=== PATIENT | female | born 1965 | race African-American/Black ===

== ENCOUNTER 2017-07-28 17:01 | Emergency (ER) | payer MEDICAID ==
[2017-07-28 17:11] VITALS: RESP 18
[2017-07-28 17:24] LABS: COLOR YELLOW; LEUKOCYTE ESTERASE,URINE NEGATIVE (NEGATIVE); NITRITE,URINE NEGATIVE (NEGATIVE)
[2017-07-28 17:32] LABS: BACTERIA TRACE /hpf (NONE SEEN); MUCUS 3+ /lpf (NONE-1+); RBC,URINE OCCASIONAL /hpf (0-3); WBC,URINE NONE SEEN /hpf (0-3)
[2017-07-28] MEDS ORDERED: IBUPROFEN 600 MG TAB PO ONE (17:52)
[2017-07-28 18:17] LABS: % IMMATURE GRANULYOCYTES 0.2 % (0.0-1.1); ABSOLUTE IMMATURE GRANULOCYTES 0.01 10^3/uL (0.00-0.10); ADD DIFF? NO; ADD MORPH? NO; ADD SCAN? NO; ATYPICAL LYMPHOCYTE FLAG 10 (0-99); FRAGMENT RBC FLAG 0 (0-99); HEMATOCRIT 45.5 % (38.0-47.0); HEMOGLOBIN 15.8 g/dL (12.6-16.3); LEFT SHIFT FLG 0 (0-99); LIPEMIA HEMOLYSIS FLAG 90 (0-99); MEAN CELL HEMOGLOBIN 35.6 pg (27.9-34.1); MEAN CELL HEMOGLOBIN CONCENTR. 34.7 g/dL (32.4-36.7); MEAN CELL VOLUME 102.5 fL (81.5-99.8); MEAN PLATELET VOLUME 9.3 fL (8.7-11.7); PLATELET CLUMPS FLAG 0 (0-99); PLATELET COUNT 336 10^3/uL (150-400); RED BLOOD CELL COUNT 4.44 10^6/uL (4.18-5.33); RED CELL DISTRIBUTION WIDTH 12.7 % (11.5-15.2)
--- NOTE | 2017-07-28 18:22 | EDPHY ---
H & P Time Seen by Provider: 07/28/17 17:30 HPI/ROS: This patient reports onset of urinary frequency yesterday as well urgency reminiscent of her previous UTI. She explains that she finished 7 days of Cipro to 3 days before that and had recurrence of symptoms. However she also reports left lower quadrant pain and left flank pain. She states the left lower quadrant pain is moderate to severe. The pain worsens with movement. She took 8 200 mg ibuprofen and this afternoon for the pain with mild relief. She notes no other exacerbating factors. She also reports mild right flank pain. No other associated symptoms and no other exacerbating factors are noted. She walked here. ROS: No high fevers or chills. No other constitutional symptoms HEENT: No URI symptoms. Neuro: No headache. No numbness tingling weakness. Pulmonary: No cough shortness of breath Cardiovascular: No chest pain. No heart palpitations. No lightheadedness. GI: No bloating. Normal bowel movements. No nausea or vomiting. She is tolerating p.o. intake. : She reports vaginal discharge consistent with prior yeast infections that she attributes to the Cipro course. Complete ROS is otherwise negative. Past Medical/Surgical History: Frequent UTIs. Insomnia. She is out of her Seroquel that she takes for insomnia and requests more. Alcohol abuse Social History: She drinks half pt of alcohol a night. She reports is down from 1 pt earlier in the year. She states that when she has Seroquel she stops drinking is able to sleep. Smoking Status: Current every day smoker Physical Exam: Vital signs are normal with exception of borderline hypertension 142/97. General Appearance: Alert, no distress. Eyes: Pupils equal and round no pallor or injection. ENT, Mouth: Mucous membranes moist. Respiratory: There are no retractions, lungs are clear to auscultation. Cardiovascular: Regular rate and rhythm. Gastrointestinal: Normoactive, soft, mild left lower quadrant tenderness with no guarding or rebound. No suprapubic tenderness. Back: Mild left flank tenderness. Otherwise normal no midline tenderness. Neurological: GCS 15 with no focal deficits appreciated. Skin: Warm and dry, no rashes. Musculoskeletal: Neck is supple nontender. Extremities are symmetrical, full range of motion. Psychiatric: Mood and affect are normal DIFFERENTIAL DIAGNOSIS: After history and physical exam differential diagnosis was considered for cystitis, pyelonephritis, diverticulitis, constipation, ureteral stone Constitutional: Initial Vital Signs Temperature (C) 36.5 C 07/28/17 17:07 Heart Rate 90 07/28/17 17:07 Respiratory Rate 18 07/28/17 17:07 Blood Pressure 142/97 H 07/28/17 17:07 O2 Sat (%) 97 07/28/17 17:07 O2 Delivery Mode Room Air Allergies/Adverse Reactions: No Known Allergies Allergy (Verified 07/28/17 17:07) Home Medications: Medication Instructions Recorded Citalopram Hydrobromide [Celexa] 40 mg PO DAILY #30 tablet 02/05/15 Cephalexin [Keflex (*)] 500 mg PO TID #21 cap 07/28/17 QUEtiapine FUMARATE [Seroquel 25 25 mg PO HS #30 tab 07/28/17 mg (*)] MDM/Departure - MDM Medications Given: Discontinued Medications Ibuprofen (Motrin) 600 mg PO EDNOW ONE Stop: 07/28/17 17:53 Last Admin: 07/28/17 17:57 Dose: Not Given ED Course/Re-evaluation: IV normal saline bolus A review of her labs reveals no significant abnormalities. She has no leukocytosis. Not think she has diverticulitis given normal CBC. Given symptoms are classic for previous UTIs and recent UTI with some bacteria current urinalysis, will treat her with Keflex for potential early UTI. I counseled regarding this. She understands the need to take probiotic while on Keflex. She will return for any significant worsening in use Tylenol or ibuprofen for symptoms. I encouraged her to decrease her drinking and to avoid excessive ibuprofen. Will provide a refill for Seroquel for her insomnia. - Depart Disposition: Home, Routine, Self-Care Clinical Impression: Dysuria, Flank pain Insomnia Qualifiers: Insomnia type: primary Qualified Code(s): F51.01 - Primary insomnia Prescriptions: Cephalexin [Keflex (*)] 500 mg PO TID #21 cap QUEtiapine FUMARATE [Seroquel 25 mg (*)] 25 mg PO HS #30 tab Referrals: [facility],. [Primary Care Provider] - As per Instructions
[2017-07-28 18:26] LABS: ALANINE AMINOTRANSFERASE 28 IU/L (9-52); ALBUMIN 4.1 g/dL (3.5-5.0); ALKALINE PHOSPHATASE 47 IU/L (38-126); ANION GAP 12 mEq/L (8-16); ASPARTATE AMINOTRANSFERASE 18 IU/L (14-46); BILIRUBIN,TOTAL 0.5 mg/dL (0.1-1.4); CALCIUM 9.7 mg/dL (8.5-10.4); CARBON DIOXIDE 24 mEq/l (22-31); CHLORIDE 108 mEq/L (97-110); CREATININE 0.7 mg/dL (0.6-1.0); GLOMERULAR FILTRATION RATE > 60; GLUCOSE 105 mg/dL (70-100); POTASSIUM 3.6 mEq/L (3.5-5.2); SODIUM 144 mEq/L (134-144); TOTAL PROTEIN 7.4 g/dL (6.3-8.2)
[2017-07-28 18:52] VITALS: BP 138/95; PULSE 65; TEMP 98.6; O2SAT 98
== END 2017-07-28 18:50 | disposition home or self-care (01) ==
LOC: CED 17:01
DX: R30.0 Dysuria (principal); F51.01 Primary insomnia; F17.200 Nicotine dependence, unspecified, uncomplicated
CPT/HCPCS: 80053-PO; 81003-PO; 81015-PO; 83690-PO; 85025-PO

== ENCOUNTER 2017-12-14 20:05 | Emergency (ER) | payer MEDICAID ==
[2017-12-14] MEDS ORDERED: MAG HYDROX/AL HYDROX/SIMETH 30 ML UDCUP PO ONE (20:28)
[2017-12-14] MEDS ORDERED: HYOSCYAMINE SULFATE 0.125 MG TAB PO ONE ×2 (20:28→21:52)
--- NOTE | 2017-12-14 20:33 | EDPHY ---
H & P Stated Complaint: 2 days burning in upper stomach Time Seen by Provider: 12/14/17 20:13 HPI/ROS: This patient describes lower chest/epigastric pain currently 8/10 intensity. She describes the pain as feeling like a knot in that area when she swallows it feels like the not lower is down a bit prior to coming back to its original position. When she belches she has a burning sensation associated with the symptoms. She reports that the symptoms worse with walking or exertion. No worsening when lying supine. No other exacerbating factors are noted. She did try Zantac over the past 2 days since the onset of symptoms without improvement. The pain does not radiate to her back. She arrived by private vehicle for evaluation of her symptoms. ROS: No fevers chills or other constitutional complaints HEENT she has had coryza over the past 2 weeks with occasional sneezing but no other complaints Pulmonary: Mild smoker's cough unchanged. No shortness of breath. No hemoptysis. Cardiovascular: No heart palpitations lightheadedness or leg swelling. No calf pain. GI: No lower belly pain. She reports normal appetite and normal bowel movements -2 a day which is baseline for her. No nausea or vomiting. No dark tarry stools or bloody stools. : No urinary symptoms vaginal discharge or other complaints Integumentary: No skin rash Endocrine: No complaints Psychiatric: No complaints. No difficulty with sleep. Complete review of symptoms is otherwise negative. Source: Patient Exam Limitations: No limitations - Personal History LMP (Females 10-55): Hysterectomy - Medical/Surgical History PMH: Past surgical history of appendectomy and internal pelvic fixation after pelvic fracture Hx Asthma: Yes Hx Chronic Respiratory Disease: No Hx Diabetes: No Hx Cardiac Disease: No Hx Renal Disease: No Hx Cirrhosis: Yes Hx Alcoholism: Yes Hx HIV/AIDS: No Hx Splenectomy or Spleen Trauma: No Other PMH: medical possible IBS, anxiety. surgery appendectomy, pelvic repair, partial hysterectomy, depression,RT RIB FX - Social History Smoking Status: Current every day smoker Alcohol Use: Occasionally Drug Use: Marijuana Additional Social History: She denies any IV drug use cocaine or other drug use besides marijuana. 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 Eyes: Pupils equal and round no pallor or injection. ENT, Mouth: Mucous membranes moist. Respiratory: There are no retractions, lungs are clear to auscultation. No chest wall or sternal tenderness on exam Cardiovascular: Regular rate and rhythm no murmur gallop or rub. No leg edema or tenderness Gastrointestinal: Normoactive, soft, nontender she points to the area just above the xiphoid is the actual area of pain. Neurological: GCS 15 with no focal deficits. Skin: Warm and dry, no rashes. Extremities are symmetrical, full range of motion. Psychiatric: Mood and affect are normal DIFFERENTIAL DIAGNOSIS: After history and physical exam differential diagnosis was considered for myocardial ischemic disease, GERD with esophageal spasm, ulcer, pancreatitis, hepatitis, cholecystitis, gastritis, hiatal hernia, esophageal stricture, esophageal cancer, pneumonia Constitutional: Initial Vital Signs Temperature (C) 36.9 C 12/14/17 20:10 Heart Rate 82 12/14/17 20:10 Respiratory Rate 18 12/14/17 20:10 Blood Pressure 135/77 H 12/14/17 20:10 O2 Sat (%) 99 12/14/17 20:10 O2 Delivery Mode Room Air Allergies/Adverse Reactions: No Known Allergies Allergy (Verified 12/14/17 20:14) Home Medications: Medication Instructions Recorded Citalopram Hydrobromide [Celexa] 40 mg PO DAILY #30 tablet 02/05/15 QUEtiapine FUMARATE [Seroquel 25 25 mg PO HS #30 tab 07/28/17 mg (*)] Albuterol 12/14/17 HYOSCYAMINE SULFATE [LEVSIN-SL] 0.125 - 0.25 mg SL Q6 PRN #20 12/14/17 tab.subl Pantoprazole Sodium [Protonix 40mg 40 mg PO DAILY #30 tab 12/14/17 (*)] Zantac 12/14/17 Medical Decision Making - Diagnostics EKG Interpretation: 12 lead EKG performed at 2033 indication epigastric pain Sinus rhythm at 61 Intervals: P R of 160, QRS of 80, QTC of 431 Reading: P of 72, QRS of 39, T of 50 ST segments: Normal throughout Overall assessment: sinus rhythm with borderline R-wave progression in anterior leads however, compared to a prior EKG dated 12/02/2015 there is no significant interval change. No evidence of acute ischemia Imaging Results: Imaging Impressions Chest X-Ray 12/14/17 20:36 Impression: 1. Mild bronchitis. 2. No focal pneumonia, pleural effusion, or pneumothorax. Two view chest x-ray: Normal by my interpretation Imaging: I viewed and interpreted images myself ED Course/Re-evaluation: IV, monitor, Maalox and Levsin p.o. with mild improvement Review of labs reveals normal CBC, comp metabolic panel, normal lipase, normal troponin Her EKG was unchanged from prior EKG with no evidence of acute ischemia Discussion: I think this patient's symptoms are attributable to GERD. She may be having some esophageal spasm associated with this or softball stricture. I counseled regarding this. After workup, I do not find evidence of coronary syndrome, pancreatitis, cholecystitis or other concerning findings. I recommend that she on Prilosec or Protonix 4. Of time and use Levsin if needed for any cramping discomfort despite this. She can also use Maalox p.r.n.. She will follow up with primary care physician for any ongoing symptoms. - Data Points Laboratory Results: Laboratory Results 12/14/17 21:15 12/14/17 21:15 12/14/17 12/14/17 21:15 21:15 WBC 6.01 10^3/uL 10^3/uL (3.80-9.50) RBC 5.16 10^6/uL 10^6/uL (4.18-5.33) Hgb 18.3 g/dL H g/dL (12.6-16.3) Hct 52.1 % H % (38.0-47.0) MCV 101.0 fL H fL (81.5-99.8) MCH 35.5 pg H pg (27.9-34.1) MCHC 35.1 g/dL g/dL (32.4-36.7) RDW 12.0 % % (11.5-15.2) Plt Count 249 10^3/uL 10^3/uL (150-400) MPV 9.4 fL fL (8.7-11.7) Neut % (Auto) 46.1 % % (39.3-74.2) Lymph % (Auto) 42.8 % % (15.0-45.0) [place] % (Auto) 7.5 % % (4.5-13.0) Eos % (Auto) 2.7 % % (0.6-7.6) Baso % (Auto) 0.7 % % (0.3-1.7) Nucleat RBC Rel Count 0.0 % % (0.0-0.2) Absolute Neuts (auto) 2.78 10^3/uL 10^3/uL (1.70-6.50) Absolute Lymphs (auto) 2.57 10^3/uL 10^3/uL (1.00-3.00) Absolute Monos (auto) 0.45 10^3/uL 10^3/uL (0.30-0.80) Absolute Eos (auto) 0.16 10^3/uL 10^3/uL (0.03-0.40) Absolute Basos (auto) 0.04 10^3/uL 10^3/uL (0.02-0.10) Absolute Nucleated RBC 0.00 10^3/uL 10^3/uL (0-0.01) Immature Gran % 0.2 % % (0.0-1.1) Immature Gran # 0.01 10^3/uL 10^3/uL (0.00-0.10) Sodium 143 mEq/L mEq/L (135-145) Potassium 3.7 mEq/L mEq/L (3.3-5.0) Chloride 104 mEq/L mEq/L (97-110) Carbon Dioxide 23 mEq/l mEq/l (22-31) Anion Gap 16 mEq/L mEq/L (8-16) BUN 12 mg/dL mg/dL (7-23) Creatinine 0.7 mg/dL mg/dL (0.6-1.0) Estimated GFR > 60 Glucose 91 mg/dL mg/dL (70-100) Calcium 9.4 mg/dL mg/dL (8.5-10.4) Total Bilirubin 0.4 mg/dL mg/dL (0.1-1.4) AST 21 IU/L IU/L (14-46) ALT 30 IU/L IU/L (9-52) Alkaline Phosphatase 54 IU/L IU/L (38-126) Troponin I < 0.012 ng/mL ng/mL (0.000-0.034) Total Protein 7.4 g/dL g/dL (6.3-8.2) Albumin 4.1 g/dL g/dL (3.5-5.0) Lipase 275 IU/L IU/L (23-300) Medications Given: Discontinued Medications Al Hydroxide/Mg Hydroxide (Maalox Susp) 30 ml PO ONCE ONE Stop: 12/14/17 20:29 Last Admin: 12/14/17 20:46 Dose: 30 ml Hyoscyamine Sulfate (Levsin, Hyomax-Sl) 0.25 mg PO ONCE ONE Stop: 12/14/17 20:29 Last Admin: 12/14/17 20:44 Dose: 0.25 mg Sodium Chloride (Ns) 1,000 mls @ 0 mls/hr IV ONCE ONE; Wide Open PRN Reason: Protocol Stop: 12/14/17 21:36 Last Admin: 12/14/17 21:45 Dose: 1,000 mls Departure - Departure Disposition: Home, Routine, Self-Care Clinical Impression: GERD (gastroesophageal reflux disease) Qualifiers: Esophagitis presence: esophagitis presence not specified Qualified Code(s): K21.9 - Gastro-esophageal reflux disease without esophagitis Gastritis Qualifiers: Gastritis type: other gastritis Chronicity: acute Gastritis bleeding: without bleeding Qualified Code(s): K29.00 - Acute gastritis without bleeding Condition: Good Instructions: Diet for Stomach Ulcers and Gastritis (ED) Additional Instructions: Diagnosis: GERD with gastritis Plan: Byron diet until he feel improved Maalox for discomfort if needed Levsin in addition Start Protonix or Prilosec 40 mg a day Follow up with primary care physician sometime within the next 3-7 days for recheck Return for any significant worsening despite the treatment plan. Referrals: [facility],. [Primary Care Provider] - As per Instructions
--- NOTE | 2017-12-14 20:36 | CPEKG ---
Heart Rate: 61 RR Interval: 984 P-R Interval: 160 QRSD Interval: 80 QT Interval: 428 QTC Interval: 431 P [place]: 72 QRS [place]: 39 T Wave [place]: 50 EKG Severity - BORDERLINE ECG - EKG Impression: SINUS RHYTHM EKG Impression: PROBABLE LEFT ATRIAL ABNORMALITY EKG Impression: BORDERLINE R WAVE PROGRESSION, ANTERIOR LEADS EKG Impression: No significant interval change when compared to an EKG dated 12/02/2015 Electronically Signed By: Refugio Albarran 14-Dec-2017 22:00:13
[2017-12-14 21:19] LABS: PLATELET COUNT 249 10^3/uL (150-400)
[2017-12-14] MEDS ORDERED: NS 1,000 ML IV ONE (21:35)
[2017-12-14] MEDS ORDERED: PANTOPRAZOLE SODIUM 40 MG TAB PO ONE (21:52)
[2017-12-14 22:42] VITALS: BP 123/96; PULSE 59; RESP 14; TEMP 98.2; O2SAT 97
== END 2017-12-14 22:42 | disposition home or self-care (01) ==
LOC: CED 20:05
DX: K21.9 Gastro-esophageal reflux disease without esophagitis (principal); K29.00 Acute gastritis without bleeding; J45.909 Unspecified asthma, uncomplicated; F17.200 Nicotine dependence, unspecified, uncomplicated; E86.9 Volume depletion, unspecified; Z90.710 Acquired absence of both cervix and uterus
CPT/HCPCS: 71046-PO; 80053-PO; 83690-PO; 84484-PO; 85025-PO

== ENCOUNTER 2018-12-22 19:04 | Emergency (ER) | payer OTHER ==
[2018-12-22] MEDS ORDERED: DIAZEPAM 5 MG PREPACK#4 BTL TAKEHOME ONE (19:16)
--- NOTE | 2018-12-22 19:17 | EDPHY ---
H & P Time Seen by Provider: 12/22/18 19:13 HPI/ROS: CHIEF COMPLAINT: Low back strain HISTORY OF PRESENT ILLNESS: The patient is a 53-year-old female who was bending over to pick something up at work when she felt a pop and had sudden right-sided low back pain. She states that she has had multiple episodes of low back pain in the past. It typically resolves with rest. She has not had any urinary symptoms. No bowel or bladder abnormalities. No hematuria or frequency. No fever. She has no midline pain or bony tenderness. No fall or injury. No radiation of the pain. No paresthesias or weakness. She took some ibuprofen prior to coming without improvement. Severity: Severe Modifying factors: Improves with lying still and massage REVIEW OF SYSTEMS: Constitutional: denies: chills, fever, recent illness, recent injury EENTM: denies: blurred vision, double vision, nose congestion Respiratory: denies: cough, shortness of breath Cardiac: denies: chest pain, irregular heart rate, lightheadedness, palpitations Gastrointestinal/Abdominal: denies: abdominal pain, diarrhea, nausea, vomiting, blood streaked stools Genitourinary: denies: dysuria, frequency, hematuria, pain Musculoskeletal: See HPI Skin: denies: lesions, rash, jaundice, bruising Neurological: denies: headache, numbness, paresthesia, tingling, dizziness, weakness Hematologic/Lymphatic: denies: blood clots, easy bleeding, easy bruising Immunologic/allergic: denies: HIV/AIDS, transplant 10 systems reviewed and negative except as noted EXAM: GENERAL: Well-appearing, well-nourished and in no acute distress. HEAD: Atraumatic, normocephalic. EYES: Pupils equal round and reactive to light, extraocular movements intact, sclera anicteric, conjunctiva are normal. ENT: TMs normal, nares patent, oropharynx clear without exudates. Moist mucous membranes. NECK: Normal range of motion, supple without lymphadenopathy or JVD. LUNGS: Breath sounds clear to auscultation bilaterally and equal. No wheezes rales or rhonchi. HEART: Regular rate and rhythm without murmurs, rubs or gallops. ABDOMEN: Soft, nontender, normoactive bowel sounds. No guarding, no rebound. No masses appreciated. BACK: Right-sided muscular pain, improves with massage, no bony tenderness or step-off. No paresthesias. EXTREMITIES: Normal range of motion, no pitting or edema. No clubbing or cyanosis. NEUROLOGICAL: Cranial nerves II through XII grossly intact. Normal speech, normal gait. 5/5 strength, normal movement in all extremities, normal sensation , normal reflexes PSYCH: Normal mood, normal affect. SKIN: Warm, dry, normal turgor, no visible rashes or lesions. Source: Patient Exam Limitations: No limitations - Medical/Surgical History Hx Asthma: Yes Hx Chronic Respiratory Disease: No Hx Diabetes: No Hx Cardiac Disease: No Hx Renal Disease: No Hx Cirrhosis: Yes Hx Alcoholism: Yes Hx HIV/AIDS: No Hx Splenectomy or Spleen Trauma: No Other PMH: medical possible IBS, anxiety. surgery appendectomy, pelvic repair, partial hysterectomy, depression,RT RIB FX - Family History Significant Family History: No pertinent family hx - Social History Smoking Status: Current every day smoker Alcohol Use: Sober Constitutional: Initial Vital Signs Temperature (C) 36.6 C 12/22/18 19:14 Heart Rate 84 12/22/18 19:14 Respiratory Rate 16 12/22/18 19:14 Blood Pressure 127/79 H 12/22/18 19:14 O2 Sat (%) 95 12/22/18 19:14 O2 Delivery Mode Room Air Allergies/Adverse Reactions: No Known Allergies Allergy (Verified 12/22/18 19:12) Home Medications: Medication Instructions Recorded Citalopram Hydrobromide [Celexa] 40 mg PO DAILY #30 tablet 02/05/15 Albuterol 12/14/17 Diazepam [Valium 5 MG (*)] 5 mg PO TID PRN #10 tab 12/22/18 Medical Decision Making ED Course/Re-evaluation: The patient has symptoms consistent with low back strain. This happened abruptly while she was bending over and picking something up. Will treat with muscle relaxants and encouraged her to continue anti-inflammatories and heat pads and rest. Discussed indications for returning to the emergency department such as neurologic or infectious symptoms. Differential Diagnosis: Partial list of the Differential diagnosis considered include but were not limited to; low back strain, radiculopathy and although unlikely based on the history and physical exam, I also considered fracture, infection, kidney stone, urinary tract infection, ovarian cyst. I discussed these differential diagnoses and the plan with the patient as well as the usual and expected course. The patient understands that the diagnosis is provisional and that in medicine we are not always correct and that further workup is often warranted. Usual and customary warnings were given. All of the patient's questions were answered. The patient was instructed to return to the emergency department should the symptoms at all worsen or return, otherwise to followup with the physician as we discussed. - Data Points Medications Given: Discontinued Medications Diazepam (Valium 5 Mg Prepack#4) [facility] Stop: 12/22/18 19:17 Last Admin: 12/22/18 19:29 Dose: 1 btl Departure - Departure Disposition: Home, Routine, Self-Care Clinical Impression: Low back strain Qualifiers: Encounter type: initial encounter Qualified Code(s): S39.012A - Strain of muscle, fascia and tendon of lower back, initial encounter Condition: Fair Instructions: Diazepam (By mouth), Low Back Strain (ED), Lower Back Exercises ( ED) Referrals: [facility],. [Primary Care Provider] - 2-3 days, if not improved Stand Alone Forms: Work Excuse Prescriptions: Diazepam [Valium 5 MG (*)] 5 mg PO TID PRN #10 tab PRN Reason: Spasms
[2018-12-22 19:22] VITALS: BP 127/79
== END 2018-12-22 19:45 | disposition home or self-care (01) ==
LOC: CED 19:04
DX: S39.012A Strain of muscle, fascia and tendon of lower back, initial encounter (principal); X50.9XXA Other and unspecified overexertion or strenuous movements or postures, initial encounter; Y92.9 Unspecified place or not applicable; Y93.9 Activity, unspecified; Y99.9 Unspecified external cause status
CPT/HCPCS: 99283-ER